=== PATIENT | male | born 1970 | race Hispanic/Latino ===

== ENCOUNTER → 2023-12-12 | Outpatient (CLI) | payer BC | END | disposition home or self-care (01) | LOC: RAH 12:30 | PROVIDERS: ATTEND Internal Medicine | DX: K76.0 Fatty (change of) liver, not elsewhere classified (principal); N28.1 Cyst of kidney, acquired; M47.815 Spondylosis without myelopathy or radiculopathy, thoracolumbar region; I70.90 Unspecified atherosclerosis; N20.0 Calculus of kidney | CPT/HCPCS: 74176 ==